=== PATIENT | male | born 1985 | race Caucasian/White ===

== ENCOUNTER 2017-04-04 16:56 | Emergency (ER) | payer BC ==
[2017-04-04] MEDS ORDERED: Sodium Chloride 0.9% 1,000 ML IV ONE (16:58)
[2017-04-04] MEDS ORDERED: Metoclopramide 10 MG/2 ML SDV IV ONE (16:58)
[2017-04-04] MEDS ORDERED: LORazepam 2 MG/ML MDV IVPUSH ONE (16:58)
--- NOTE | 2017-04-04 17:03 | EDM.PDOC ---
<Amina Schulz - Last Filed: 04/04/17 19:27> ED HPI GENERAL MEDICAL PROBLEM - General Stated Complaint: PT NAUSEA Time Seen by Provider: 04/04/17 16:58 - History of Present Illness INITIAL COMMENTS - FREE TEXT/NARRATIVE: This is Dr. Schulz dictating an addendum note as I assumed care of this patient at 7 PM. All testing results are within normal limits and I discussed with the patient. He is currently stable here and taking by mouth water without distress and his abdomen remains benign. I have stressed to him the need to refrain from donating plasma or bled until he is followed up by one of our clinic providers and to eat a bland diet pushing fluids. I stressed to him the reasons to return to the ED if he needs to. Impression: Vomiting/near syncopal event status post blood donation stable improved - Related Data Allergies Allergy/AdvReac Type Severity Reaction Status Date / Time No Known Allergies Allergy Verified 04/04/17 17:10 Home Meds: Home Meds . [No Known Home Meds] 01/10/15 [History] ED ROS GENERAL - Review of Systems Review Of Systems: ROS reveals no pertinent complaints other than HPI. Course - Vital Signs Last Recorded V/S: Last Vital Signs Temp 98.4 F 04/04/17 19:50 Pulse 86 04/04/17 19:50 Resp 16 04/04/17 19:50 BP 126/75 04/04/17 19:50 Pulse Ox 98 04/04/17 19:50 - Orders/Labs/Meds Orders: Active Orders 24 hr Category Date Time Status EKG Documentation Completion [RC] STAT Care 04/04/17 17:56 Active Chest 1V Frontal [CR] Stat Exams 04/04/17 17:56 Taken Labs: Laboratory Tests 04/04/17 04/04/17 Range/Units 18:20 18:20 WBC 12.27 H (4.0-11.0) K/uL RBC 4.55 (4.50-5.90) M/uL Hgb 14.7 (13.0-17.0) g/dL Hct 40.6 (38.0-50.0) % MCV 89.2 (80.0-98.0) fL MCH 32.3 H (27.0-32.0) pg MCHC 36.2 (31.0-37.0) g/dL RDW Std Deviation 40.2 (28.0-62.0) fl RDW Coeff of Lashanda 12 (11.0-15.0) % Plt Count 224 (150-400) K/uL MPV 9.60 (7.40-12.00) fL Neut % (Auto) 87.4 H (48.0-80.0) % Lymph % (Auto) 6.5 L (16.0-40.0) % Shelby % (Auto) 5.9 (0.0-15.0) % Eos % (Auto) 0.1 (0.0-7.0) % Baso % (Auto) 0.1 (0.0-1.5) % Neut # (Auto) 10.7 H (1.4-5.7) K/uL Lymph # (Auto) 0.8 (0.6-2.4) K/uL Shelby # (Auto) 0.7 (0.0-0.8) K/uL Eos # (Auto) 0.0 (0.0-0.7) K/uL Baso # (Auto) 0.0 (0.0-0.1) K/uL Nucleated RBC % 0.0 /100WBC Nucleated RBCs # 0 K/uL Sodium 139 (136-146) mmol/L Potassium 3.4 L (3.5-5.1) mmol/L Chloride 108 (98-110) mmol/L Carbon Dioxide 21 (21-31) mmol/L BUN 17 (6.0-23.0) mg/dL Creatinine 1.0 (0.6-1.5) mg/dL Est Cr Clr Drug Dosing 111.53 mL/min Estimated GFR (MDRD) > 60.0 ml/min Glucose 122 H (60-110) mg/dL Calcium 9.1 (8.8-10.8) mg/dL Total Bilirubin 0.9 (0.1-1.5) mg/dL AST 20 (5-40) IU/L ALT 21 (8-54) IU/L Alkaline Phosphatase 56 (40-150) Troponin I < 0.10 (0.0-0.29) NG/ML Total Protein 6.4 (6.0-8.0) g/dL Albumin 4.2 (3.5-5.0) g/dL Globulin 2.2 (2.0-3.5) g/dL Albumin/Globulin Ratio 1.9 (1.3-2.8) Lipase 20 (7-80) U/L Meds: Medications Discontinued Medications Generic Name Dose Route Start Last Admin Trade Name Manuelitoq PRN Reason Stop Dose Admin Sodium Chloride 1,000 mls @ 999 mls/hr 04/04/17 16:58 04/04/17 17:00 Normal Saline IV 04/04/17 17:58 999 mls/hr .Bolus ONE Administration Lorazepam 0.5 mg 04/04/17 16:58 04/04/17 17:07 Ativan IVPUSH 04/04/17 16:59 0.5 mg ONETIME ONE Administration Metoclopramide HCl 10 mg 04/04/17 16:58 04/04/17 17:15 Reglan IV 04/04/17 16:59 10 mg ONETIME ONE Administration Metoclopramide HCl Confirm 04/04/17 17:13 Reglan Administered 04/04/17 17:14 Dose 10 mg .ROUTE .STK-MED ONE Ondansetron HCl 4 mg 04/04/17 17:21 04/04/17 17:26 Zofran IVPUSH 04/04/17 17:22 4 mg ONETIME ONE Administration Departure - Departure Time of Disposition: 19:28 Disposition: Still A Patient 31 Condition: Good Clinical Impression: Vasovagal near syncope Bilious emesis Qualifiers: Nausea presence: with nausea Qualified Code(s): R11.14 - Bilious vomiting Clinical Impression: (Ruled Out): Emesis - Discharge Information Instructions: Vasovagal Syncope, Adult Referrals: PCP,None [Primary Care Provider] - Forms: ED Department Discharge Additional Instructions: The following information is given to patients seen in the emergency department who are being discharged to home. This information is to outline your options for follow-up care. We provide all patients seen in our emergency department with a follow-up referral. The need for follow-up, as well as the timing and circumstances, are variable depending upon the specifics of your emergency department visit. If you don't have a primary care physician on staff, we will provide you with a referral. We always advise you to contact your personal physician following an emergency department visit to inform them of the circumstance of the visit and for follow-up with them and/or the need for any referrals to a consulting specialist. The emergency department will also refer you to a specialist when appropriate. This referral assures that you have the opportunity for follow-up care with a specialist. All of these measure are taken in an effort to provide you with optimal care, which includes your follow-up. Under all circumstances we always encourage you to contact your private physician who remains a resource for coordinating your care. When calling for follow-up care, please make the office aware that this follow-up is from your recent emergency room visit. If for any reason you are refused follow-up, please contact the [facility] Emergency Department at and asked to speak to the emergency department charge nurse. [facility] [address] [place] [phone] Please call our clinic tomorrow to schedule a follow-up appointment as we discussed. Push hydration such as water and Gatorade and eat a bland diet for the next 24 hours. Return to ER as needed and as discussed. - My Orders Last 24 Hours: My Active Orders 04/04/17 17:56 EKG Documentation Completion [RC] STAT Chest 1V Frontal [CR] Stat - Assessment/Plan Last 24 Hours: My Active Orders 04/04/17 17:56 EKG Documentation Completion [RC] STAT Chest 1V Frontal [CR] Stat <Radha Thompson - Last Filed: 04/05/17 07:05> ED HPI GENERAL MEDICAL PROBLEM - General Source of Information: Reports: Patient History Limitations: Reports: No Limitations - History of Present Illness INITIAL COMMENTS - FREE TEXT/NARRATIVE: History of present illness: []Patient was donating blood when he became very nauseous and started vomiting bilious fluid profusely. He was brought in by ambulance after giving Zofran route which has decreased his vomiting but patient still complains of nausea. Patient states he ate approximately an hour before going to donate blood. After the vomiting started he was observed for approximately an hour at the donation site before ambulance was called. While he was in the ED he was having muscle cramping and began complaining of chest pain. Patient denies any abdominal pain , shortness of breath, fevers or chills. Review of systems: As per history of present illness and below otherwise all systems reviewed and negative. Past medical history: As per history of present illness and as reviewed below otherwise noncontributory. Surgical history: As per history of present illness and as reviewed below otherwise noncontributory. Social history: No reported history of drug or alcohol abuse. Family history: As per history of present illness and as reviewed below otherwise noncontributory. Physical exam: General: Well developed, anxious, vomiting, well nourished in NAD HEENT: Atraumatic, normocephalic, pupils reactive, negative for conjunctival pallor or scleral icterus, mucous membranes moist, throat clear, neck supple, nontender, trachea midline. Lungs: Clear to auscultation, breath sounds equal bilaterally, chest nontender. Heart: S1S2, regular, negative for clicks, rubs, or JVD. Abdomen: Soft, nondistended, nontender. Negative for masses or hepatosplenomegaly. Negative for costovertebral tenderness. Pelvis: Stable nontender. Genitourinary: Deferred. Rectal: Deferred. Extremities: Atraumatic, negative for cords or calf pain. Neurovascular unremarkable. Neuro: Awake, alert, oriented. Cranial nerves II through XII unremarkable. Cerebellum unremarkable. Motor and sensory unremarkable throughout. Exam nonfocal. Diagnostics: []Labs are pending Therapeutics: []IV hydration, Reglan, Zofran given in the ED Impression: []Vasovagal syncope, bilious emesis Plan: []Dr. Schulz to disposition patients after reviewing results Definitive disposition and diagnosis as appropriate pending reevaluation and review of above. chest pain Pain Score (Numeric/FACES): 6 Past Medical History - Past Health History Medical/Surgical History: Denies Medical/Surgical History Social & Family History - Tobacco Use Smoking Status *Q: Never Smoker - Recreational Drug Use Recreational Drug Use: No ED ROS GENERAL - Review of Systems Review Of Systems: See Below (See history of present illness) ED EXAM, GENERAL - Physical Exam Exam: See Below (See history of present illness) Course - Vital Signs Last Recorded V/S: Last Vital Signs Temp 98.4 F 04/04/17 19:50 Pulse 86 04/04/17 19:50 Resp 16 04/04/17 19:50 BP 126/75 04/04/17 19:50 Pulse Ox 98 04/04/17 19:50 - Orders/Labs/Meds Labs: Laboratory Tests 04/04/17 04/04/17 Range/Units 18:20 18:20 WBC 12.27 H (4.0-11.0) K/uL RBC 4.55 (4.50-5.90) M/uL Hgb 14.7 (13.0-17.0) g/dL Hct 40.6 (38.0-50.0) % MCV 89.2 (80.0-98.0) fL MCH 32.3 H (27.0-32.0) pg MCHC 36.2 (31.0-37.0) g/dL RDW Std Deviation 40.2 (28.0-62.0) fl RDW Coeff of Lashanda 12 (11.0-15.0) % Plt Count 224 (150-400) K/uL MPV 9.60 (7.40-12.00) fL Neut % (Auto) 87.4 H (48.0-80.0) % Lymph % (Auto) 6.5 L (16.0-40.0) % Shelby % (Auto) 5.9 (0.0-15.0) % Eos % (Auto) 0.1 (0.0-7.0) % Baso % (Auto) 0.1 (0.0-1.5) % Neut # (Auto) 10.7 H (1.4-5.7) K/uL Lymph # (Auto) 0.8 (0.6-2.4) K/uL Shelby # (Auto) 0.7 (0.0-0.8) K/uL Eos # (Auto) 0.0 (0.0-0.7) K/uL Baso # (Auto) 0.0 (0.0-0.1) K/uL Nucleated RBC % 0.0 /100WBC Nucleated RBCs # 0 K/uL Sodium 139 (136-146) mmol/L Potassium 3.4 L (3.5-5.1) mmol/L Chloride 108 (98-110) mmol/L Carbon Dioxide 21 (21-31) mmol/L BUN 17 (6.0-23.0) mg/dL Creatinine 1.0 (0.6-1.5) mg/dL Est Cr Clr Drug Dosing 111.53 mL/min Estimated GFR (MDRD) > 60.0 ml/min Glucose 122 H (60-110) mg/dL Calcium 9.1 (8.8-10.8) mg/dL Total Bilirubin 0.9 (0.1-1.5) mg/dL AST 20 (5-40) IU/L ALT 21 (8-54) IU/L Alkaline Phosphatase 56 (40-150) Troponin I < 0.10 (0.0-0.29) NG/ML Total Protein 6.4 (6.0-8.0) g/dL Albumin 4.2 (3.5-5.0) g/dL Globulin 2.2 (2.0-3.5) g/dL Albumin/Globulin Ratio 1.9 (1.3-2.8) Lipase 20 (7-80) U/L Departure - Departure Condition: Good
[2017-04-04] MEDS ORDERED: Metoclopramide 10 MG/2 ML SDV ONE (17:13)
[2017-04-04] MEDS ORDERED: Ondansetron 4 MG/2 ML SDV IVPUSH ONE (17:21)
[2017-04-04 18:51] LABS: CHLORIDE,CL 108 mmol/L (98-110); SODIUM,NA 139 mmol/L (136-146)
[2017-04-04 22:10] VITALS: BP 126/75
--- NOTE | 2017-04-05 09:38 | CR ---
EXAM DATE: 04/04/17 PATIENT'S AGE: 31 Patient: BOOKER LARSEN Facility: [place], [place] Site . Site : 1985 Study: XRay Chest [id number]/6/2018 6:50:12 PM Ordering Physician: Jay Garcia Final Report: INDICATION: vomiting and shaking after blood donation TECHNIQUE: Chest 1 view. COMPARISON: None. FINDINGS: Cardiovascular and mediastinum: Heart size and vasculature are normal in caliber and appearance. Mediastinum is within normal limits. Lungs and pleural space: Lungs are clear. No sign of infiltrate or mass. No sign of pleural effusion. No pneumothorax. Bones and soft tissues: No significant findings. IMPRESSION: Unremarkable chest. Dictated by: Sanford Berger MD @ 04/04/2017 19:02:54 (Electronic Signature) Report Signed by Proxy. [facility]
== END 2017-04-04 19:51 | disposition still patient (30) ==
LOC: MW.ED 16:56
DX: R55 Syncope and collapse (principal); R11.14 Bilious vomiting
CPT/HCPCS: 36415; 71045; 80053; 83690; 84484; 85025; 93005; 96361; 96374; 96375; 99285; J2060; J2405; J2765; J7040; 99284

== ENCOUNTER 2017-08-04 10:57 | Emergency (ER) | payer BC ==
[2017-08-04 11:28] VITALS: BP 138/86
--- NOTE | 2017-08-04 11:44 | EDM.PDOC ---
ED HPI GENERAL MEDICAL PROBLEM - General Chief Complaint: General Stated Complaint: PT SPOKE TO NURSE Time Seen by Provider: 08/04/17 11:30 Source of Information: Reports: Patient History Limitations: Reports: No Limitations - History of Present Illness INITIAL COMMENTS - FREE TEXT/NARRATIVE: HISTORY AND PHYSICAL: History of present illness: [32-year-old male patient who presents today after a fall early this morning at home in which he states "my legs gave out" and he hit his head on the floor. Hasn't been feeling well for the past couple of days. Patient states he feels slightly confused, however he is a & O 3. Patient denies loss of consciousness , loss of bowel and bladder, or current headache. Patient does admit to feeling nauseous and dry heaving this morning but no emesis. This symptoms occurred prior to his legs giving out. Patient states he has not been feeling well for the last 3 days, with body aches since yesterday, and he contributes his fall to his symptoms of weakness. Patient denies any chest pain or shortness of breath. Denies headache, rhinorrhea, sore throat. Patient has had a mild nonproductive cough. No other recent illness or infection. No change in bowel or bladder. Denies any other recent falls, trauma or injury. No specific muscle or joint pain, other than generalized aching. Medical history significant for anxiety which he is managing well with counseling only. He has never had medications or been treated for this in the past. Review of systems: As per history of present illness and below otherwise all systems reviewed and negative. Past medical history: Depression and anxiety. Surgical history: As per history of present illness and as reviewed below otherwise noncontributory. Social history: No reported history of drug, alcohol abuse, or tobacco use. Family history: As per history of present illness and as reviewed below otherwise noncontributory. Physical exam: HEENT: Small hematoma noted to the right forehead. PERRLA, EOMs intact. Mucous membranes are pink and moist. Throat is clear, with uvula midline, no erythema or exudates present. Neck is supple supple with no lymphedema. Lungs: Inspiratory and expiratory rhonchi noted bilaterally. Heart: S1S2, regular, negative for clicks, rubs, or JVD. Abdomen: Soft, nondistended, nontender. Negative for masses or hepatosplenomegaly. Bowel sounds are normoactive throughout. Pelvis: Stable nontender. Genitourinary: Deferred. Rectal: Deferred. Extremities: Atraumatic, negative for cords or calf pain. Full range of motion throughout. Neurovascular unremarkable. Neuro: Awake, alert, oriented. Cranial nerves II through XII unremarkable. Cerebellum unremarkable. Motor and sensory unremarkable throughout. Exam nonfocal. Psych: Flat affect, makes decent eye contact. Sentences are full and clear. Diagnostics: [CBC, CMP, lactic acid, UA with micro. CT head without contrast. Chest x-ray.] Therapeutics: [1 Liter normal saline] Impression: [Viral illness Head contusion] Plan: [Discussed with patient that his head CT and chest x-ray showed no abnormalities. Labs are within normal limits no elevated white count. Lactic acid 1.5. Discussed with patient that his symptoms appear to be viral in nature. Recommend treating with plenty of fluids and rest. Taking it easy for a couple days. Tylenol or ibuprofen as needed for discomfort for his head contusion or body aches. Strict return precautions are reviewed. He is in agreement with today's plan. All questions are answered and concerns are addressed.] Definitive disposition and diagnosis as appropriate pending reevaluation and review of above. Generalized Pain Score (Numeric/FACES): 5 - Related Data Allergies Allergy/AdvReac Type Severity Reaction Status Date / Time No Known Allergies Allergy Verified 04/04/17 17:10 Home Meds: Home Meds . [No Known Home Meds] 01/10/15 [History] Past Medical History - Past Health History Medical/Surgical History: Denies Medical/Surgical History - Infectious Disease History Infectious Disease History: Reports: None Social & Family History - Family History Family Medical History: Noncontributory - Tobacco Use Smoking Status *Q: Never Smoker - Caffeine Use Caffeine Use: Reports: Energy Drinks - Recreational Drug Use Recreational Drug Use: No ED ROS GENERAL - Review of Systems Review Of Systems: ROS reveals no pertinent complaints other than HPI. ED EXAM, GENERAL - Physical Exam Exam: See Below Course - Vital Signs Last Recorded V/S: Last Vital Signs Temp 98.6 F 08/04/17 11:25 Pulse 89 08/04/17 11:25 Resp 16 08/04/17 11:25 BP 138/86 08/04/17 11:25 Pulse Ox 97 08/04/17 11:25 - Orders/Labs/Meds Orders: Active Orders 24 hr Category Date Time Status Chest 2V [CR] Stat Exams 08/04/17 11:44 Taken Head wo Cont [CT] Stat Exams 08/04/17 11:43 Taken URINALYSIS W/MICROSCOPIC [UA W/MICROSCOPIC] [URIN] Stat Lab 08/04/17 12:10 Ordered URINALYSIS W/MICROSCOPIC [UA W/MICROSCOPIC] [URIN] Stat Lab 08/04/17 12:13 Ordered Labs: Laboratory Tests 08/04/17 08/04/17 08/04/17 Range/Units 11:48 11:48 11:48 WBC 4.49 (4.0-11.0) K/uL RBC 4.73 (4.50-5.90) M/uL Hgb 15.2 (13.0-17.0) g/dL Hct 43.1 (38.0-50.0) % MCV 91.1 (80.0-98.0) fL MCH 32.1 H (27.0-32.0) pg MCHC 35.3 (31.0-37.0) g/dL RDW Std Deviation 42.2 (28.0-62.0) fl RDW Coeff of Lashanda 13 (11.0-15.0) % Plt Count 209 (150-400) K/uL MPV 9.70 (7.40-12.00) fL Neut % (Auto) 62.1 (48.0-80.0) % Lymph % (Auto) 24.7 (16.0-40.0) % Zapata % (Auto) 9.6 (0.0-15.0) % Eos % (Auto) 2.9 (0.0-7.0) % Baso % (Auto) 0.7 (0.0-1.5) % Neut # (Auto) 2.8 (1.4-5.7) K/uL Lymph # (Auto) 1.1 (0.6-2.4) K/uL Zapata # (Auto) 0.4 (0.0-0.8) K/uL Eos # (Auto) 0.1 (0.0-0.7) K/uL Baso # (Auto) 0.0 (0.0-0.1) K/uL Nucleated RBC % 0.0 /100WBC Nucleated RBCs # 0 K/uL Lactate 1.5 (0.20-2.00) mmol/L Sodium 140 (136-148) mmol/L Potassium 3.8 (3.5-5.1) mmol/L Chloride 104 (98-107) mmol/L Carbon Dioxide 27.9 (21.0-32.0) mmol/L BUN 20 H (7.0-18.0) mg/dL Creatinine 1.0 (0.8-1.3) mg/dL Est Cr Clr Drug Dosing 124.44 mL/min Estimated GFR (MDRD) > 60.0 ml/min Glucose 107 H (74-106) mg/dL Calcium 8.9 (8.5-10.1) mg/dL Total Bilirubin 0.6 (0.2-1.0) mg/dL AST 14 L (15-37) IU/L ALT 22 (14-63) IU/L Alkaline Phosphatase 47 (46-116) U/L Total Protein 7.1 (6.4-8.2) g/dL Albumin 4.0 (3.4-5.0) g/dL Globulin 3.1 (2.0-3.5) g/dL Albumin/Globulin Ratio 1.3 (1.3-2.8) Urine Color Urine Appearance Urine pH (5.0-8.0) Ur Specific Prosper (1.001-1.035) Urine Protein (NEGATIVE) mg/dL Urine Glucose (UA) (NEGATIVE) mg/dL Urine Ketones (NEGATIVE) mg/dL Urine Occult Blood (NEGATIVE) Urine Nitrite (NEGATIVE) Urine Bilirubin (NEGATIVE) Urine Urobilinogen (<2.0) EU/dL Ur Leukocyte Esterase (NEGATIVE) Urine RBC (0-2/HPF) Urine WBC (0-5/HPF) Ur Epithelial Cells (NONE-FEW) Ur Squamous Epith Cells Urine Bacteria (NEGATIVE) 08/04/17 Range/Units 12:10 WBC (4.0-11.0) K/uL RBC (4.50-5.90) M/uL Hgb (13.0-17.0) g/dL Hct (38.0-50.0) % MCV (80.0-98.0) fL MCH (27.0-32.0) pg MCHC (31.0-37.0) g/dL RDW Std Deviation (28.0-62.0) fl RDW Coeff of Lashanda (11.0-15.0) % Plt Count (150-400) K/uL MPV (7.40-12.00) fL Neut % (Auto) (48.0-80.0) % Lymph % (Auto) (16.0-40.0) % Zapata % (Auto) (0.0-15.0) % Eos % (Auto) (0.0-7.0) % Baso % (Auto) (0.0-1.5) % Neut # (Auto) (1.4-5.7) K/uL Lymph # (Auto) (0.6-2.4) K/uL Zapata # (Auto) (0.0-0.8) K/uL Eos # (Auto) (0.0-0.7) K/uL Baso # (Auto) (0.0-0.1) K/uL Nucleated RBC % /100WBC Nucleated RBCs # K/uL Lactate (0.20-2.00) mmol/L Sodium (136-148) mmol/L Potassium (3.5-5.1) mmol/L Chloride (98-107) mmol/L Carbon Dioxide (21.0-32.0) mmol/L BUN (7.0-18.0) mg/dL Creatinine (0.8-1.3) mg/dL Est Cr Clr Drug Dosing mL/min Estimated GFR (MDRD) ml/min Glucose (74-106) mg/dL Calcium (8.5-10.1) mg/dL Total Bilirubin (0.2-1.0) mg/dL AST (15-37) IU/L ALT (14-63) IU/L Alkaline Phosphatase (46-116) U/L Total Protein (6.4-8.2) g/dL Albumin (3.4-5.0) g/dL Globulin (2.0-3.5) g/dL Albumin/Globulin Ratio (1.3-2.8) Urine Color YELLOW Urine Appearance CLEAR Urine pH 7.0 (5.0-8.0) Ur Specific Prosper <= 1.005 (1.001-1.035) Urine Protein NEGATIVE (NEGATIVE) mg/dL Urine Glucose (UA) NEGATIVE (NEGATIVE) mg/dL Urine Ketones NEGATIVE (NEGATIVE) mg/dL Urine Occult Blood NEGATIVE (NEGATIVE) Urine Nitrite NEGATIVE (NEGATIVE) Urine Bilirubin NEGATIVE (NEGATIVE) Urine Urobilinogen 0.2 (<2.0) EU/dL Ur Leukocyte Esterase NEGATIVE (NEGATIVE) Urine RBC 0-1 (0-2/HPF) Urine WBC 0-1 (0-5/HPF) Ur Epithelial Cells RARE (NONE-FEW) Ur Squamous Epith Cells RARE Urine Bacteria RARE (NEGATIVE) Meds: Medications Discontinued Medications Generic Name Dose Route Start Last Admin Trade Name Freq PRN Reason Stop Dose Admin Sodium Chloride 1,000 mls @ 999 mls/hr 08/04/17 11:45 08/04/17 11:49 Normal Saline IV 08/04/17 12:45 999 mls/hr STAT ONE Administration Departure - Departure Time of Disposition: 13:00 Disposition: Home, Self-Care 01 Condition: Good Clinical Impression: Viral illness, Head contusion - Discharge Information Instructions: Contusion, [id number], Viral Illness, Adult Referrals: PCP,None [Primary Care Provider] - Forms: ED Department Discharge Additional Instructions: The following information is given to patients seen in the emergency department who are being discharged to home. This information is to outline your options for follow-up care. We provide all patients seen in our emergency department with a follow-up referral. The need for follow-up, as well as the timing and circumstances, are variable depending upon the specifics of your emergency department visit. If you don't have a primary care physician on staff, we will provide you with a referral. We always advise you to contact your personal physician following an emergency department visit to inform them of the circumstance of the visit and for follow-up with them and/or the need for any referrals to a consulting specialist. The emergency department will also refer you to a specialist when appropriate. This referral assures that you have the opportunity for follow-up care with a specialist. All of these measure are taken in an effort to provide you with optimal care, which includes your follow-up. Under all circumstances we always encourage you to contact your private physician who remains a resource for coordinating your care. When calling for follow-up care, please make the office aware that this follow-up is from your recent emergency room visit. If for any reason you are refused follow-up, please contact the [facility] emergency department at and asked to speak to the emergency department charge nurse. [facility] [address] [place] [id number] Follow-up with her local primary care provider at the clinic listed above in 48- 72 hours. Push fluids, get plenty of rest, take it easy for the next day or 2. Return to ER as needed as discussed. - My Orders Last 24 Hours: My Active Orders 08/04/17 11:43 Head wo Cont [CT] Stat 08/04/17 11:44 Chest 2V [CR] Stat 08/04/17 12:10 URINALYSIS W/MICROSCOPIC [UA W/MICROSCOPIC] [URIN] Stat 08/04/17 12:13 URINALYSIS W/MICROSCOPIC [UA W/MICROSCOPIC] [URIN] Stat - Assessment/Plan Last 24 Hours: My Active Orders 08/04/17 11:43 Head wo Cont [CT] Stat 08/04/17 11:44 Chest 2V [CR] Stat 08/04/17 12:10 URINALYSIS W/MICROSCOPIC [UA W/MICROSCOPIC] [URIN] Stat 08/04/17 12:13 URINALYSIS W/MICROSCOPIC [UA W/MICROSCOPIC] [URIN] Stat
[2017-08-04] MEDS ORDERED: Sodium Chloride 0.9% 1,000 ML IV ONE (11:45)
[2017-08-04 12:15] LABS: CHLORIDE,CL 104 mmol/L (98-107); SODIUM,NA 140 mmol/L (136-148)
--- NOTE | 2017-08-04 15:54 | CT ---
EXAM DATE: 08/04/17 PATIENT'S AGE: 32 Patient: BOOKER LARSEN Facility: [place], [place] Site . Site : 1985 Study: CT Head [id number]/8/2018 12:30:40 PM Ordering Physician: Doctor Malave Final Report: INDICATION: Fall TECHNIQUE: CT head without contrast. COMPARISON: 09/16/2008 FINDINGS: CSF spaces: Within normal limits for age. Brain parenchyma: The osborne-white differentiation is normal. No sign of mass, hemorrhage, or midline shift. Skull base and calvarium: The visualized paranasal sinuses and mastoid air cells demonstrate no acute or significant findings. The visualized orbits are grossly unremarkable. No skull fractures. IMPRESSION: Unremarkable noncontrast head CT. Dictated by Sanford Berger MD @ 08/04/2017 12:45:31 PM Please note that all CT scans at this facility use dose modulation, iterative reconstruction, and/or weight-based dosing when appropriate to reduce radiation dose to as low as reasonably achievable. Dictated by: Sanford Berger MD @ 08/04/2017 12:45:35 (Electronic Signature) Report Signed by Proxy. [facility]
--- NOTE | 2017-08-04 15:55 | CR ---
EXAM DATE: 08/04/17 PATIENT'S AGE: 32 Patient: BOOKER LARSEN Facility: [place], [place] Site . Site : 1985 Study: XRay Chest [id number]/8/2018 12:40:26 PM Ordering Physician: Doctor Maalve Final Report: INDICATION: PAIN/SHORTNESS OF BREATH TECHNIQUE: Chest 2 views. COMPARISON: 04/04/17 FINDINGS: Cardiovascular and mediastinum: Heart size and vasculature are normal in caliber and appearance. Mediastinum is within normal limits. Lungs and pleural spaces: Lungs are clear. No sign of infiltrate or mass. No sign of pleural effusion. No pneumothorax. Bones and soft tissues: No significant findings. IMPRESSION: Unremarkable chest. Dictated by: Sanford Berger MD @ 08/04/2017 12:50:02 (Electronic Signature) Report Signed by Proxy. NICOLE
== END 2017-08-04 13:28 | disposition home or self-care (01) ==
LOC: MW.ED 10:57
DX: S00.83XA Contusion of other part of head, initial encounter (principal); B34.9 Viral infection, unspecified; W22.8XXA Striking against or struck by other objects, initial encounter
CPT/HCPCS: 36415; 70450; 71046; 80053; 81001; 83605; 85025; 96360; 99284; J7040